=== PATIENT | female | born 1955 | race Caucasian/White ===

== ENCOUNTER 2018-10-23 15:53 | Observation (INO) ==
[2018-10-23] MEDS ORDERED: Aspirin 81 MG TAB.CHEW PO ONE (16:00)
--- NOTE | 2018-10-23 16:06 | Emergency Department Note ---
Disposition Clinical Impression: TIA (transient ischemic attack) Disposition: Admitted As Inpatient Condition: Fair Time of Disposition: 18:39 General Adult HPI - General Chief complaint: ED Headache Stated complaint: Weakness right side Time Seen by Provider: 10/23/18 15:59 - Related Data Home Medications Medication Instructions Recorded Confirmed Aspirin 81 mg PO DAILY 11/23/15 10/23/18 Atorvastatin Calcium [Lipitor] 20 mg PO DAILY 11/23/15 10/23/18 Bupropion HCl [Wellbutrin Xl] 300 mg PO DAILY 11/23/15 10/23/18 Cholecalciferol (D-3) [Vitamin D] 5,000 unit PO DAILY 11/23/15 10/23/18 Ferrous Sulfate 325 mg PO DAILY 11/23/15 10/23/18 Glimepiride [Amaryl] 4 mg PO QAM 11/23/15 10/23/18 Lisinopril [Zestril] 30 mg PO DAILY 11/23/15 10/23/18 Meclizine [Antivert] 25 mg PO AD PRN 11/23/15 10/23/18 hydroCHLOROthiazide 12.5 mg PO DAILY 11/23/15 10/23/18 [Hydrochlorothiazide] metFORMIN [Glucophage] 500 mg PO BID 11/23/15 10/23/18 Omeprazole [PriLOSEC] 20 mg PO DAILY 01/03/17 10/23/18 BuPROPion XL (24 HR) [Wellbutrin 150 mg PO DAILY 10/23/18 10/23/18 XL] Ferrous Sulfate [Iron] 325 mg PO DAILY 10/23/18 10/23/18 Glimepiride [Amaryl] 4 mg PO DAILY 10/23/18 10/23/18 Ondansetron HCl 4 mg SL Q4HR PRN 10/23/18 10/23/18 Promethazine [Phenergan] 25 mg PO Q8HR PRN 10/23/18 10/23/18 Saxagliptin HCl [Onglyza] 5 mg PO DAILY 10/23/18 10/23/18 buPROPion HCl [Zyban] 150 mg PO BID 10/23/18 10/23/18 hydroCHLOROthiazide 12.5 mg PO DAILY 10/23/18 10/23/18 [Hydrochlorothiazide] Allergies Allergy/AdvReac Type Severity Reaction Status Date / Time No Known Allergies Allergy Verified 11/23/15 09:31 Past Medical History - Past Medical History Medical history: Reports: diabetes, GERD Surgical history: Reports: orthopedic, other Psychiatric history: Reports: depression - Social History Smoking Status: Never smoker Smokeless Tobacco Status: No Alcohol use: Reports: none Drug use: Reports: none Course Vital Signs Temperature 98.9 F 10/23/18 16:01 Pulse Rate 72 10/23/18 16:01 Respiratory Rate 16 10/23/18 16:01 Blood Pressure 156/77 10/23/18 16:01 O2 Sat by Pulse Oximetry 99 10/23/18 16:01 Temperature 98.8 F 10/23/18 19:50 Pulse Rate 78 10/23/18 19:50 Respiratory Rate 20 10/23/18 19:50 Blood Pressure 138/78 10/23/18 19:50 O2 Sat by Pulse Oximetry 98 10/23/18 19:50 Oxygen Delivery Oxygen Delivery Room Air Medical Decision Making - Lab Data Result diagrams: 10/23/18 16:17 10/23/18 16:17 Lab Results 10/23/18 10/23/18 10/23/18 Range/Units 16:09 16:17 16:17 WBC 5.8 (4.3-11.1) K/mcL RBC 4.36 (3.82-4.97) M/mcL Hgb 12.9 (11.5-15.4) g/dL Hct 39.2 (35.3-44.9) % MCV 89.9 (83.0-100.0) fL MCH 29.6 (28.0-33.3) pg MCHC 32.9 (31.6-35.5) g/dL RDW 12.3 (11.5-14.5) % Plt Count 195 (140-400) K/mcL MPV 11.7 (9.4-12.4) fL PT 11.1 (9.4-12.1) Seconds INR 1.0 APTT 32.6 (26.0-36.0) Seconds Sodium (136-145) mEq/L Potassium (3.5-5.1) mEq/L Chloride (98-107) mEq/L Carbon Dioxide (23-29) mEq/L BUN (8-23) mg/dL Creatinine (0.60-1.20) mg/dL Est GFR ( Amer) (> 60) Est GFR (Non-Af Amer) (> 60) BUN/Creatinine Ratio (6-26) Glucose (70-105) mg/dL POC Glucose 385 H (70-99) mg/dL Calculated Osmolality (280-300) Calcium (8.6-10.3) mg/dL Troponin I (< 0.04) ng/mL Urine Color (Yellow) Urine Clarity (Clear) Urine pH (5.0-8.0) pH Units Ur Specific [place] (1.010-1.025) Urine Protein (Neg-Trace) mg/dL Urine Glucose (UA) (Normal) mg/dL Urine Ketones (Negative) mg/dL Urine Blood (Negative) Urine Nitrite (Negative) Urine Bilirubin (Negative) Urine Urobilinogen (Normal) mg/dL Ur Leukocyte Esterase (Negative) Ur Culture Indicated? (NO) 10/23/18 10/23/18 Range/Units 16:17 16:30 WBC (4.3-11.1) K/mcL RBC (3.82-4.97) M/mcL Hgb (11.5-15.4) g/dL Hct (35.3-44.9) % MCV (83.0-100.0) fL MCH (28.0-33.3) pg MCHC (31.6-35.5) g/dL RDW (11.5-14.5) % Plt Count (140-400) K/mcL MPV (9.4-12.4) fL PT (9.4-12.1) Seconds INR APTT (26.0-36.0) Seconds Sodium 137 (136-145) mEq/L Potassium 4.0 (3.5-5.1) mEq/L Chloride 105 (98-107) mEq/L Carbon Dioxide 24 (23-29) mEq/L BUN 18 (8-23) mg/dL Creatinine 0.75 (0.60-1.20) mg/dL Est GFR ( Amer) > 60 (> 60) Est GFR (Non-Af Amer) > 60 (> 60) BUN/Creatinine Ratio 24 (6-26) Glucose 381 H (70-105) mg/dL POC Glucose (70-99) mg/dL Calculated Osmolality 302 H (280-300) Calcium 9.2 (8.6-10.3) mg/dL Troponin I < 0.03 (< 0.04) ng/mL Urine Color Yellow (Yellow) Urine Clarity Clear (Clear) Urine pH 6.0 (5.0-8.0) pH Units Ur Specific [place] > 1.030 H (1.010-1.025) Urine Protein Negative (Neg-Trace) mg/dL Urine Glucose (UA) >=1000 H (Normal) mg/dL Urine Ketones Negative (Negative) mg/dL Urine Blood Negative (Negative) Urine Nitrite Negative (Negative) Urine Bilirubin Negative (Negative) Urine Urobilinogen Normal (Normal) mg/dL Ur Leukocyte Esterase Negative (Negative) Ur Culture Indicated? NO (NO) Attestation Statement - Attestation Attestation: I examined this patient and my medical decision-making was reviewed with the Resident Physician. I agree with the documented findings, disposition and treatment plan as described except to the extent set forth below. Patient presents to the ED with a chief but a right-sided weakness. Patient states she was talking to her and was unable to find her words. He said the right side of her mouth drooped down. She had weakness of the right arm and leg. They called 911. Her symptoms resolved in route. On exam she is awake alert and appropriate. Clear speech. Oriented. Moves all extremities. NIH of 0. Plan. Patient appears to have had a TIA. Her symptoms are resolved with an NIH of 0. No stroke alert was called. Workup and likely admission. EKG reviewed with the resident. Normal sinus. No ischemic changes. Patient reassessed with no change. Will be admitted for further TIA workup. Head CT 10/23/18 16:02 IMPRESSION: No evidence of acute intracranial abnormality. D/ / 10/23/2018 17:04:41 Elie Lombardi MD / marco antonio Interpreting Provider: Elie Lombardi MD
--- NOTE | 2018-10-23 16:07 | Emergency Department Note ---
Disposition Clinical Impression: TIA (transient ischemic attack) Disposition: Admitted As Inpatient Condition: Fair Time of Disposition: 18:30 General Adult HPI - General Chief complaint: ED Headache Stated complaint: Weakness right side Time Seen by Provider: 10/23/18 15:59 Source: patient, EMS Mode of arrival: EMS Limitations: no limitations Nursing Notes Reviewed: Yes Vital Signs Reviewed: Yes - History of Present Illness HPI Narrative: 63-year-old female with 30m of right sided weakness and dysphagia that started at 1445 and lasted for about 30m. she reports that she was talking to her and could not think of the word faucet and then could not speak. Patient also reports that she had right-sided weakness and leaned to the right. reports that the right side of her face was drooping. Patient reports no history of strokes in the past. Patient also reports that she had a headache earlier today and laid down to take a nap at approximately noon today. Initial NIH is 0. - Related Data Home Medications Medication Instructions Recorded Confirmed Aspirin 81 mg PO DAILY 11/23/15 10/23/18 Atorvastatin Calcium [Lipitor] 20 mg PO DAILY 11/23/15 10/23/18 Bupropion HCl [Wellbutrin Xl] 300 mg PO DAILY 11/23/15 10/23/18 Cholecalciferol (D-3) [Vitamin D] 5,000 unit PO DAILY 11/23/15 10/23/18 Ferrous Sulfate 325 mg PO DAILY 11/23/15 10/23/18 Glimepiride [Amaryl] 4 mg PO QAM 11/23/15 10/23/18 Lisinopril [Zestril] 30 mg PO DAILY 11/23/15 10/23/18 Meclizine [Antivert] 25 mg PO AD PRN 11/23/15 10/23/18 hydroCHLOROthiazide 12.5 mg PO DAILY 11/23/15 10/23/18 [Hydrochlorothiazide] metFORMIN [Glucophage] 500 mg PO BID 11/23/15 10/23/18 Omeprazole [PriLOSEC] 20 mg PO DAILY 01/03/17 10/23/18 BuPROPion XL (24 HR) [Wellbutrin 150 mg PO DAILY 10/23/18 10/23/18 XL] Ferrous Sulfate [Iron] 325 mg PO DAILY 10/23/18 10/23/18 Glimepiride [Amaryl] 4 mg PO DAILY 10/23/18 10/23/18 Ondansetron HCl 4 mg SL Q4HR PRN 10/23/18 10/23/18 Promethazine [Phenergan] 25 mg PO Q8HR PRN 10/23/18 10/23/18 Saxagliptin HCl [Onglyza] 5 mg PO DAILY 10/23/18 10/23/18 buPROPion HCl [Zyban] 150 mg PO BID 10/23/18 10/23/18 hydroCHLOROthiazide 12.5 mg PO DAILY 10/23/18 10/23/18 [Hydrochlorothiazide] Allergies Allergy/AdvReac Type Severity Reaction Status Date / Time No Known Allergies Allergy Verified 11/23/15 09:31 Review of Systems: In addition to that documented in the HPI above, the additional ROS was obtained: Constitutional: Denies fevers or chills Eyes: Denies vision changes ENMT: Denies sore throat CV: Denies chest pain Resp: Denies SOB GI: Denies vomiting or diarrhea : Denies painful urination MSK: Denies recent trauma Skin: Denies new rashes Neuro: Denies new numbness or tingling or weakness Endocrine: Denies unexpected weight loss Heme: Denies bleeding disorders Past Medical History - Past Medical History Medical history: Reports: diabetes, GERD Surgical history: Reports: orthopedic, other Psychiatric history: Reports: depression - Social History Smoking Status: Never smoker Smokeless Tobacco Status: No Alcohol use: Reports: none Drug use: Reports: none Physical Exam General: A&O x 3. No acute distress. Well developed, well nourished. Head: atraumatic, normocephalic. ENT: No conjunctival injection, no scleral icterus. PERRLA. EOMI. Oropharynx n on- erythematous. mucous membranes moist. Neuro: No focal deficits, no speech deficit, no facial droop, mentating well. BUE/BLE Str 5/5. Yobani UE/LE sensation intact. CN II-XII intact. Cerebellar test ing with [id number] and [id number]-[id number] intact. Pulm: Lungs CTAB A/P. No wheezes, rales, ronchi. Cardio: RRR no m/r/g. Chest not tender to palpation. Abd: Soft, non-distended. Normoactive bowel sounds. Non-tender to palpation. No guarding. Non rigid. Extremities: Radial pulses 2+ yobani, dorsalis pedis/posterior tibialis 2+ yobani. No LE edema. No cyanosis, clubbing. Skin: warm, dry, intact. No rashes. Psych: Appropriate mood and affect. Answers questions appropriately. Cooperative with exam. Course Vital Signs Temperature 98.9 F 10/23/18 16:01 Pulse Rate 72 10/23/18 16:01 Respiratory Rate 16 10/23/18 16:01 Blood Pressure 156/77 10/23/18 16:01 O2 Sat by Pulse Oximetry 99 10/23/18 16:01 Temperature 98.9 F 10/23/18 16:01 Pulse Rate 68 10/23/18 18:59 Respiratory Rate 16 10/23/18 18:59 Blood Pressure 174/52 10/23/18 18:59 O2 Sat by Pulse Oximetry 98 10/23/18 18:59 Oxygen Delivery Oxygen Delivery Room Air Medical Decision Making - [facility] Narrative Medical decision making narrative: 63-year-old female with sudden onset right-sided weakness that lasted for approximately 30 minutes. Will do a neurologic workup. Suspect admit. 1800: Patient's initial head CT was negative for any acute intracranial findings. Her lab work was unremarkable except for an elevated glucose. However given the fact the patient's symptoms are consistent with a TIA she is at increased risk of having a CVA within the next 24-48 hours. Patient could benefit from an inpatient workup including MRI and neurologic consult. Patient was admitted to the hospitalist Dr. Sanches who agreed to send the patient to his service. Results of the workup including any imaging and/or labwork was shared with the patient at bedside. Patient was given an opportunity to ask questions at bedside and all of their concerns were addressed. Patient verbalized understanding and agreement with plan of care. Pt remained stable while in the department. - Medical Records Medical records reviewed: Yes I reviewed the patient's medical records. - Lab Data Lab results reviewed: Yes I reviewed the patient's lab results. Result diagrams: 10/23/18 16:17 10/23/18 16:17 Lab Results 10/23/18 10/23/18 10/23/18 Range/Units 16:09 16:17 16:17 WBC 5.8 (4.3-11.1) K/mcL RBC 4.36 (3.82-4.97) M/mcL Hgb 12.9 (11.5-15.4) g/dL Hct 39.2 (35.3-44.9) % MCV 89.9 (83.0-100.0) fL MCH 29.6 (28.0-33.3) pg MCHC 32.9 (31.6-35.5) g/dL RDW 12.3 (11.5-14.5) % Plt Count 195 (140-400) K/mcL MPV 11.7 (9.4-12.4) fL PT 11.1 (9.4-12.1) Seconds INR 1.0 APTT 32.6 (26.0-36.0) Seconds Sodium (136-145) mEq/L Potassium (3.5-5.1) mEq/L Chloride (98-107) mEq/L Carbon Dioxide (23-29) mEq/L BUN (8-23) mg/dL Creatinine (0.60-1.20) mg/dL Est GFR ( Amer) (> 60) Est GFR (Non-Af Amer) (> 60) BUN/Creatinine Ratio (6-26) Glucose (70-105) mg/dL POC Glucose 385 H (70-99) mg/dL Calculated Osmolality (280-300) Calcium (8.6-10.3) mg/dL Troponin I (< 0.04) ng/mL Urine Color (Yellow) Urine Clarity (Clear) Urine pH (5.0-8.0) pH Units Ur Specific [place] (1.010-1.025) Urine Protein (Neg-Trace) mg/dL Urine Glucose (UA) (Normal) mg/dL Urine Ketones (Negative) mg/dL Urine Blood (Negative) Urine Nitrite (Negative) Urine Bilirubin (Negative) Urine Urobilinogen (Normal) mg/dL Ur Leukocyte Esterase (Negative) Ur Culture Indicated? (NO) 10/23/18 10/23/18 Range/Units 16:17 16:30 WBC (4.3-11.1) K/mcL RBC (3.82-4.97) M/mcL Hgb (11.5-15.4) g/dL Hct (35.3-44.9) % MCV (83.0-100.0) fL MCH (28.0-33.3) pg MCHC (31.6-35.5) g/dL RDW (11.5-14.5) % Plt Count (140-400) K/mcL MPV (9.4-12.4) fL PT (9.4-12.1) Seconds INR APTT (26.0-36.0) Seconds Sodium 137 (136-145) mEq/L Potassium 4.0 (3.5-5.1) mEq/L Chloride 105 (98-107) mEq/L Carbon Dioxide 24 (23-29) mEq/L BUN 18 (8-23) mg/dL Creatinine 0.75 (0.60-1.20) mg/dL Est GFR ( Amer) > 60 (> 60) Est GFR (Non-Af Amer) > 60 (> 60) BUN/Creatinine Ratio 24 (6-26) Glucose 381 H (70-105) mg/dL POC Glucose (70-99) mg/dL Calculated Osmolality 302 H (280-300) Calcium 9.2 (8.6-10.3) mg/dL Troponin I < 0.03 (< 0.04) ng/mL Urine Color Yellow (Yellow) Urine Clarity Clear (Clear) Urine pH 6.0 (5.0-8.0) pH Units Ur Specific [place] > 1.030 H (1.010-1.025) Urine Protein Negative (Neg-Trace) mg/dL Urine Glucose (UA) >=1000 H (Normal) mg/dL Urine Ketones Negative (Negative) mg/dL Urine Blood Negative (Negative) Urine Nitrite Negative (Negative) Urine Bilirubin Negative (Negative) Urine Urobilinogen Normal (Normal) mg/dL Ur Leukocyte Esterase Negative (Negative) Ur Culture Indicated? NO (NO) - Radiology Data Radiology results reviewed: Yes I reviewed the patient's radiology results. Head CT 10/23/18 16:02 IMPRESSION: No evidence of acute intracranial abnormality. D/ / 10/23/2018 17:04:41 Elie Lombardi MD / marco antonio Interpreting Provider: Elie Lombardi MD - EKG Data EKG #1 EKG attestation: Yes I reviewed and interpreted this EKG. EKG results narrative: eart rate 76, rhythm sinus, axis nor intervals within normal limits. No ST segment elevation or depression. When compared with previous EKG dated 04/21/2012 there are no significant changes.
[2018-10-23 16:45] LABS: Hematocrit 39.2 % (35.3-44.9); Hemoglobin 12.9 g/dL (11.5-15.4); Mean Corpuscular HGB Conc 32.9 g/dL (31.6-35.5); Mean Corpuscular Hemoglobin 29.6 pg (28.0-33.3); Mean Corpuscular Volume 89.9 fL (83.0-100.0); Mean Platelet Volume 11.7 fL (9.4-12.4); Platelet Count 195 K/mcL (140-400); Red Blood Count 4.36 M/mcL (3.82-4.97); Red Cell Distribution Width 12.3 % (11.5-14.5); White Blood Count 5.8 K/mcL (4.3-11.1)
[2018-10-23 16:56] LABS: Prothrombin Time 11.1 Seconds (9.4-12.1)
[2018-10-23 16:59] LABS: Activated Partial Thrombo Time 32.6 Seconds (26.0-36.0)
[2018-10-23 17:09] LABS: Bilirubin,Urine Negative (Negative); Blood,Urine Negative (Negative); Clarity,Urine Clear (Clear); Color,Urine Yellow (Yellow); Glucose,Urine (UA) >=1000 mg/dL (Normal); Ketones,Urine Negative (Negative); Leukocyte Esterase,Urine Negative (Negative); Nitrite,Urine Negative (Negative); Protein,Urine Negative (Neg-Trace); Specific Gravity,Urine > 1.030 (1.010-1.025); Urobilinogen,Urine Normal (Normal)
[2018-10-23 17:14] LABS: BUN/Creatinine Ratio 24 (6-26); Blood Urea Nitrogen 18 mg/dL (8-23); Calcium 9.2 mg/dL (8.6-10.3); Carbon Dioxide 24 mEq/L (23-29); Chloride 105 mEq/L (98-107); Glucose 381 mg/dL (70-105); Osmolality,Calculated 302 (280-300); Sodium 137 mEq/L (136-145); Troponin I < 0.03 ng/mL (< 0.04); eGFR For African Americans > 60 (> 60); eGFR For Non-African Americans > 60 (> 60)
[2018-10-23] MEDS ORDERED: Prochlorperazine 10 MG/2 ML VIAL IVP STA (18:49)
[2018-10-23] MEDS ORDERED: Ketorolac 15 MG/ML VIAL IVP ONE (18:49)
[2018-10-23] MEDS ORDERED: *HR* Dextrose 50 % in Water (Syg) 50 ML SYRINGE IVP PRN (19:50)
[2018-10-23] MEDS ORDERED: Dextrose Gel 15 GM/37.5 ML TUBE PO PRN ×2 (19:50)
[2018-10-23] MEDS ORDERED: Gadolinium Contrast Agent (WT Based) IV PRN (19:58)
[2018-10-23] MEDS ORDERED: Ringers Solution, Lactated 1,000 ML IVC SCH (20:30)
[2018-10-23] MEDS ORDERED: Insulin LISPRO 300 UNITS/3 ML VIAL SQ SCH (21:00)
[2018-10-23] MEDS ORDERED: BUPROPION HCL 150 MG PO SCH (21:00)
--- NOTE | 2018-10-23 21:25 | Internal Med History&Physical ---
Date of Encounter: 10/23/18 Time of Encounter: 21:24 Internal Medicine - H&P: HPI Chief complaint: speech difficulty Admitted From: Home Plans for Post Hospital Care: Home History of present illness: Emily Lorenzana is a 63 year old woman with a medical history remarkable for IBS, hypothyroidism, iron deficiency anemia and diabetes presented to the emergency room with the chief complaint of right-sided weakness and difficulty with her speech. She states that around 3 PM this afternoon she developed difficulty speaking while she was having was conversing with her and could not articulate her words. She says prior to this she was on the computer and after she clicked her mouse, she had difficulty discerning what she was seeing and doing, subsequently becoming confused. She then proceeded to stand up and developed right-sided weakness, leaned towards that side as she could not move her right leg. Her noting facial drooping and she reported some tingling in her face. She states it lasted about 30 minutes and reports that this has never happened to her in the past. She had a mild headache preceding the symptoms. At the time of arrival to the ER the symptoms had resolved and he r NIH was 0. Head CT done was unremarkable and her lab work was grossly within normal limits except an elevated glucose at 380. She denies chest pain, dyspnea and dizziness. Vitals: Reviewed General: Obese white woman lying in bed in no acute distress. Skin: Warm and supple. HEENT: Moist mucous membranes. No conjunctivae pallor. Neck: No lymphadenopathy. No JVD. No carotid bruits. No palpable thyroid. Chest: Normal thoracic expansion. Normal breath sounds. Clear to auscultation. Heart: Normal S1 & S2; rhythmic. Grade IV/ systolic murmur in bilateral upper sternal borders. Abdomen: Non-distended, soft and non-tender to palpation. No peritoneal reaction. Extremities: No clubbing, cyanosis or edema. No calf tenderness. Normal distal pulses. Neurological: Awake, alert and oriented to person, place and time. No focal deficits present. Strength and sensation intact. Psych: Affect appropriate. Assessment/Plan 1. TIA: Although since resolved, the patient has an ABCD2 score of 6 which is high risk for occurrence of a stroke in the days following this event. She is advised on risk factor modification as evidenced by the need to improve her blood pressure control and glycemic values. She will also benefit from weight loss. In the interim, will monitor her on telemetry, obtain an echo given the murmur auscultated and MRI of her brain parenchyma and vasculature. She says she was previously on aspirin about 4 years ago but it was disontinued by her PCP. Will give loading dose and continue with low dose aspirin. 2. Diabetes: Poorly controlled. Will check A1C and will need readjustment of her medications as an outpatient and counseling on adherence. 3. Hypertension: Poorly controlled. Will continue to monitor and may also require medication adjustments. 4. Obesity: Counseled and educated on therapeutic lifestyle changes for weight loss as it will be of benefit in controlling comorbidities. Client Representative evaluation advised. Past Med Surg Social Fam HX - Past Medical History Medical history: diabetes, GERD, hyperlipidemia, hypertension Additional medical history: hyperthyroidism, vertigo, IBS Psychiatric history: depression - Past Surgical History Surgical History: orthopedic, other Additional surgical history: tubal liagation, liver bx benign,wisdom teeth removed, right carpal tunnel, bone spur left knee - Social History Smoking Status: Never smoker Smokeless Tobacco Status: No Alcohol use: none Drug use: none - Family History Father Adopted: [place]: TESSY Family Member Ethnicity: Non- Living Status: Age at : 70 Cause of : HEART PROBLEMS Hx Family Cardiac Disorders: Yes Hx Family Respiratory Disorders: No Hx Family Cancer: No Hx Family GI Disorders: No Hx Family Genitourinary Disorders: No Hx Family Endocrine Disorder: No Hx Family Musculoskeletal Disorders: No Hx Family Neuromuscular Disorders: No Hx Family Neurologic Disorders: No Hx Family HEENT Disorders: No Hx Family Autoimmune Disorders: No Hx Family Reproductive Disorders: No Hx Family Psychosocial Disorders: No Hx Family Medical Disorders: No Internal Medicine - H&P: Meds Aspirin 81 mg PO DAILY 11/23/15 [History] Atorvastatin Calcium [Lipitor] 20 mg PO DAILY 11/23/15 [History] Bupropion HCl [Wellbutrin Xl] 300 mg PO DAILY 11/23/15 [History] Cholecalciferol (D-3) [Vitamin D] 5,000 unit PO DAILY 11/23/15 [History] Ferrous Sulfate 325 mg PO DAILY 11/23/15 [History] Glimepiride [Amaryl] 4 mg PO QAM 11/23/15 [History] Lisinopril [Zestril] 30 mg PO DAILY 11/23/15 [History] Meclizine [Antivert] 25 mg PO AD PRN 11/23/15 [History] hydroCHLOROthiazide [Hydrochlorothiazide] 12.5 mg PO DAILY 11/23/15 [History] metFORMIN [Glucophage] 500 mg PO BID 11/23/15 [History] Omeprazole [PriLOSEC] 20 mg PO DAILY 01/03/17 [History] BuPROPion XL (24 HR) [Wellbutrin XL] 150 mg PO DAILY 10/23/18 [History] Ferrous Sulfate [Iron] 325 mg PO DAILY 10/23/18 [History] Glimepiride [Amaryl] 4 mg PO DAILY 10/23/18 [History] Ondansetron HCl 4 mg SL Q4HR PRN 10/23/18 [History] Promethazine [Phenergan] 25 mg PO Q8HR PRN 10/23/18 [History] Saxagliptin HCl [Onglyza] 5 mg PO DAILY 10/23/18 [History] buPROPion HCl [Zyban] 150 mg PO BID 10/23/18 [History] hydroCHLOROthiazide [Hydrochlorothiazide] 12.5 mg PO DAILY 10/23/18 [History] Allergy/AdvReac Type Severity Reaction Status Date / Time No Known Allergies Allergy Verified 11/23/15 09:31 All Systems PM: A 10-system review of systems was performed and is negative for pertinent findings except as documented above in the HPI. Family history reviewed and found non-contributory. - Constitutional Vitals: Temp Pulse Resp BP Pulse Ox 98.8 F 78 20 138/78 98 10/23/18 19:50 10/23/18 19:50 10/23/18 19:50 10/23/18 19:50 10/23/18 19:50 Exam: . Internal Med - H&P Results - Labs CBC & Chem 7: 10/23/18 16:17 10/23/18 16:17 Labs: Short CBC 10/23/18 Range/Units 16:17 WBC 5.8 (4.3-11.1) K/mcL Hgb 12.9 (11.5-15.4) g/dL Hct 39.2 (35.3-44.9) % Plt Count 195 (140-400) K/mcL BMP 10/23/18 16:17 Sodium 137 Potassium 4.0 Chloride 105 Carbon Dioxide 24 BUN 18 Creatinine 0.75 Glucose 381 H Calcium 9.2 Cardiac Enzymes 10/23/18 Range/Units 16:17 Troponin I < 0.03 (< 0.04) ng/mL Urine 10/23/18 Range/Units 16:30 Urine Color Yellow (Yellow) Urine Clarity Clear (Clear) Urine pH 6.0 (5.0-8.0) pH Units Ur Specific [place] > 1.030 H (1.010-1.025) Urine Protein Negative (Neg-Trace) mg/dL Urine Glucose (UA) >=1000 H (Normal) mg/dL - Impressions ITS Impressions Head CT 10/23/18 16:02 IMPRESSION: No evidence of acute intracranial abnormality. D/ / 10/23/2018 17:04:41 Elie Lombardi MD / marco antonio Interpreting Provider: Elie Lombardi MD - Time Spent With Patient Total time spent is greater than 50% in coordination of care (as documented) at patient's floor/unit and/or counseling patient:
[2018-10-23] MEDS ORDERED: Ondansetron ODT 4 MG TAB.RAPDIS SL PRN (22:37)
--- NOTE | 2018-10-23 23:06 | Event Note ---
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 We will place neurology consult and physical therapy evaluation. Findings discussed with patient.
[2018-10-23] MEDS ORDERED: Melatonin 3 MG TABLET PO SCH (23:30)
[2018-10-24 01:56] LABS: Thyroid Stimulating Hormone 2.534 mcIU/mL (0.340-5.600)
[2018-10-24 04:11] LABS: Estimated Average Glucose 255 mg/dl
[2018-10-24] MEDS ORDERED: Insulin LISPRO 300 UNITS/3 ML VIAL SQ SCH ×3 (07:30→09:02)
[2018-10-24] MEDS ORDERED: *HR* LORazepam 0.5 MG TABLET PO ONE (08:02)
--- NOTE | 2018-10-24 08:15 | Internal Med Progress Note ---
Hospitalist Progress Note - Encounter Date of Encounter: 10/24/18 Time of Encounter: 08:12 - Subjective Interval History: Patient was seen and examined at bedside. Currently patient is awake alert and oriented following simple commands. Patient states she feels as if she is back to baseline and is asking when she can go home. Discussed treatment plan with the patient which includes MRI evaluation of neurology as well as PT evaluation. Patient verbalizes understanding of treatment plan - Exam Vitals: Temp Pulse Resp BP Pulse Ox 98.2 F 66 16 173/83 95 10/24/18 08:00 10/24/18 08:00 10/24/18 08:00 10/24/18 08:00 10/24/18 08:00 Exam: Skin: Free of rash and discoloration. Eyes: Sclera is white. There is no discharge from eyes. ENMT: Oral/pharyngeal mucosa is normal in appearance. There is no discharge from nose or ears. Respiratory: Normal breath sounds with no crackles and wheezes bilaterally. CV: Heart is regular with no gallop or murmur. GI: Abdomen is flat and soft with no palpable mass or visceromegaly. : There is no tenderness in patient's flanks bilaterally. Neuro exam: He has good strength in upper and lower extremities. He has normal eye movements. Psychiatric: He has normal affect. His thought process is appropriate to the situation. - Assessment and Plan (1) CVA (cerebral vascular accident) Current Visit: Yes Status: Acute Assessment and Plan: 1 patient presented after experiencing sudden onset of right-sided weakness and difficulty with each as well as right-sided facial drooping. CT of head shows no acute intracranial abnormality however MRI of brain and head without contrast does reveal a small area of acute infarct within the right periventricular white matter. With no evidence of acute intracranial hemorrhage. She also has severe stenosis at the junction of the left P1 and P2 segments of the left posterior cerebral artery no infarct is identified in this distribution. Currently patient has returned to her baseline there are no focal deficits noted-no facial drooping Neurology has been consulted PT OT has been consulted We will continue with aspirin and statin MRA of neck is pending at this time We will allow for permissive hypertension Maintain adequate glucose control it appears patient has uncontrolled diabetes (2) HTN (hypertension) Current Visit: Yes Status: Acute Assessment and Plan: We will allow for permissive hypertension at this time (3) Diabetes Current Visit: Yes Status: Acute Assessment and Plan: Appears to have uncontrolled diabetes hemoglobin A1c is 10.5 we will hold oral agents for now place on sliding insulin scale [id number] before meals at bedtime She will need education concerning the importance of glucose control - Time Spent with Patient Total time spent is greater than 50% in coordination of care (as documented) at patient's floor/unit and/or counseling patient: Internal Medicine: Result - Labs CBC & Chem 7: 10/23/18 16:17 10/23/18 16:17 Labs: Short CBC 10/23/18 Range/Units 16:17 WBC 5.8 (4.3-11.1) K/mcL Hgb 12.9 (11.5-15.4) g/dL Hct 39.2 (35.3-44.9) % Plt Count 195 (140-400) K/mcL BMP 10/23/18 16:17 Sodium 137 Potassium 4.0 Chloride 105 Carbon Dioxide 24 BUN 18 Creatinine 0.75 Glucose 381 H Calcium 9.2 Cardiac Enzymes 10/23/18 Range/Units 16:17 Troponin I < 0.03 (< 0.04) ng/mL Urine 10/23/18 Range/Units 16:30 Urine Color Yellow (Yellow) Urine Clarity Clear (Clear) Urine pH 6.0 (5.0-8.0) pH Units Ur Specific [place] > 1.030 H (1.010-1.025) Urine Protein Negative (Neg-Trace) mg/dL Urine Glucose (UA) >=1000 H (Normal) mg/dL - ABG Interpretation ABG results: PT/INR, D-dimer PT 11.1 Seconds (9.4-12.1) 10/23/18 16:17 - Impressions Impressions Head CT 10/23/18 16:02 IMPRESSION: No evidence of acute intracranial abnormality. D/ / 10/23/2018 17:04:41 Elie Lombardi MD / marco antonio Interpreting Provider: Elie Lombardi MD Brain MRI 10/23/18 19:58 IMPRESSION: Small area of acute infarct within right periventricular white matter. No evidence of acute intracranial hemorrhage. Small amount of chronic small vessel ischemic white matter disease. Mild diffuse cerebral volume loss. 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 No infarct is identified in this distribution. No additional evidence of high-grade stenosis or focal occlusion involving the intracranial vasculature. The findings were sent to the Radiology Results Communication Center at 9:56 pm on 10/23/2018to be communicated to a licensed caregiver. D/ / 10/23/2018 22:01:23 Julio Horner MD / marco antonio Interpreting Provider: Julio Horner MD Head MRA 10/23/18 19:58 IMPRESSION: Small area of acute infarct within right periventricular white matter. No evidence of acute intracranial hemorrhage. Small amount of chronic small vessel ischemic white matter disease. Mild diffuse cerebral volume loss. 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 No infarct is identified in this distribution. No additional evidence of high-grade stenosis or focal occlusion involving the intracranial vasculature. The findings were sent to the Radiology Results Communication Center at 9:56 pm on 10/23/2018to be communicated to a licensed caregiver. D/ / 10/23/2018 22:01:23 Julio Horner MD / marco antonio Interpreting Provider: Julio Horner MD Echocardiogram 10/23/18 19:59 Impressions: LVEF 60-65%. Normal LV chamber size and function. Mild concentric left ventricular hypertrophy. Mild left ventricular diastolic dysfunction. Normal right ventricular structure and function. Suboptimal image quality, but no obvious evidence of PFO with agitated saline contrast. Mildly calcified aortic valve leaflets. No aortic stenosis detected by Doppler. Visually, there is mild aortic stenosis. No evidence of pulmonary hypertension. Left Ventricular Wall Motion: Rest Echo Findings All wall segments showed normal motion. Findings: Study Quality * Technically sub-optimal due to poor echocardiographic windows. ECG Findings * Normal sinus rhythm. Left Ventricle * LVEF 60-65%. * Normal LV chamber size and function. * Mild concentric left ventricular hypertrophy. * Mild left ventricular diastolic dysfunction. Right Ventricle * Normal right ventricular structure and function. Left Atrium * Mildly dilated left atrium. Right Atrium * Normal right atrial size. Interatrial Septum * Suboptimal image quality, but no obvious evidence of PFO with agitated saline contrast. Aortic Valve * Trileaflet aortic valve. * Mildly calcified aortic valve leaflets. * No aortic regurgitation. * No aortic stenosis detected by Doppler. Visually, there is mild aortic stenosis. Mitral Valve * Mild mitral annular calcification * Trace mitral regurgitation. * No mitral stenosis. Tricuspid Valve * Normal tricuspid valve structure and function. * Trace tricuspid regurgitation. * No evidence of pulmonary hypertension. Pulmonic Valve * Normal pulmonic valve structure and function. * No pulmonic regurgitation. Aorta * Normally sized aortic root. Pericardium * The pericardium appears normal. IVC * Normal IVC dimensions and inspiratory collapse. Pulmonary Artery * Normal visualized portions of the main pulmonary artery. - VTE Documentation of Mechanical Device: Graduated compression elastic hosiery Consult Discharge Plan - Plan Referrals: Louisa Caldera CNP [Primary Care Provider] - (2) HTN (hypertension) Qualifiers: Hypertension type: essential hypertension Qualified Code(s): I10 - Essential (primary) hypertension (3) Diabetes Qualifiers: Diabetes mellitus type: type 2 Diabetes mellitus fci insulin use: without fci use Diabetes mellitus complication status: without complication Qualified Code(s): E11.9 - Type 2 diabetes mellitus without complications
[2018-10-24] MEDS ORDERED: BuPROPion XL (24 HR) 150 MG TABLET PO SCH (09:00)
[2018-10-24] MEDS ORDERED: Cholecalciferol (D-3) 1,000 UNIT (25MCG) TABLET PO SCH (09:00)
[2018-10-24] MEDS ORDERED: Lisinopril 20 MG TABLET PO SCH ×2 (09:00→13:45)
[2018-10-24] MEDS ORDERED: NON-FORMULARY MEDICATION 1 EACH EACH (Bupropion Hcl [Wellbutrin Xl] 300 MG) PO SCH (09:00)
[2018-10-24] MEDS ORDERED: hydroCHLOROthiazide 25 MG TABLET PO SCH ×2 (09:00→13:46)
[2018-10-24] MEDS ORDERED: Aspirin 81 MG TAB.CHEW PO SCH (09:00)
--- NOTE | 2018-10-24 09:53 | Neurology - Consult Note ---
Date of Encounter: 10/24/18 Time of Encounter: 09:47 Assessment and Plan (1) CVA (cerebral vascular accident) Current Visit: Yes Status: Acute This is a 63-year-old woman with past medical history significant for upper tension, diabetes who developed acute onset of confusion, speech difficulty as well as right leg weakness lasting 15-20 minutes with a rapid resolution. MRI of the brain confirmed diagnosis of lacunar infarct involving the right periv entricular white matter, which is most consistent with small vessel etiology. Agree with antiplatlet therapy in the form of Aspirin 81mg daily and statin therapy. Echocardiogram reports are available and reviewed and currently no indication for anticoagulation therapy. Patient has no known history of atrial fibrillation Patient is MRA of the brain demonstrated severe stenosis involving the left P1 segment however, no cerebral infarct noted in the area supplied by this artery. No indication for any type of angioplastic procedures for this type of finding. Treatment is a largely medical including antiplatelet therapy and statin therapy. Patient's neurological condition returned back to normal and it is anticipated that patient will be returning home after stroke workup is completed. Qualifiers: CVA mechanism: unspecified Qualified Code(s): I63.9 - Cerebral infarction, unspecified History of Present Illness Chief complaint: confusion and right leg weakness and abnormal MRI HPI: Ms. Lorenzana is a 63 year old female with past medical history significant for hy pertension diabetes, hyperlipidemia, depression, hypothyroidism, migraine headaches, GERD, who developed acute onset of confusion, speech difficulty and right leg weakness yesterday afternoon at about 3 PM. Symptoms recurred rather acutely while she was using computer. She suddenly become confused and had difficulty comprehending what she was doing and also felt that her right leg was weak and she was found to have speech difficulty. Symptoms lasted about 15-20 minutes and rapidly improved. In the emergency room, her CT of the head was reported no acute intracranial abnormality. Subsequently, patient completed MRI of the brain which demonstrated presence of small area of acute infarct within right periventricular white matter. There is no evidence of acute intracranial hemorrhage. MRA of the head demonstrated severe stenosis at the junction of the left P1 segment of the left posterior cerebral artery. However, no cerebral infarct is identified in this distribution. No additional evidence of high grade stenosis or focal occlusion involving the intracranial vasculature. Patient was taking aspirin for unspecified reason in the past and it was discontinued. This was restarted again at this time. Past Med Surg Social Fam HX - Past Medical History Medical history: diabetes, GERD, hyperlipidemia, hypertension Additional medical history: hyperthyroidism, vertigo, IBS Psychiatric history: depression - Past Surgical History Surgical History: orthopedic, other Additional surgical history: tubal liagation, liver bx benign,wisdom teeth removed, right carpal tunnel, bone spur left knee - Social History Smoking Status: Never smoker Smokeless Tobacco Status: No Alcohol use: none Drug use: none - Family History Father Adopted: [place]: TESS[place] Family Member Ethnicity: Non- Living Status: Age at : 70 Cause of : HEART PROBLEMS Hx Family Cardiac Disorders: Yes Hx Family Respiratory Disorders: No Hx Family Cancer: No Hx Family GI Disorders: No Hx Family Genitourinary Disorders: No Hx Family Endocrine Disorder: No Hx Family Musculoskeletal Disorders: No Hx Family Neuromuscular Disorders: No Hx Family Neurologic Disorders: No Hx Family HEENT Disorders: No Hx Family Autoimmune Disorders: No Hx Family Reproductive Disorders: No Hx Family Psychosocial Disorders: No Hx Family Medical Disorders: No Medications and Allergies Aspirin 81 mg PO DAILY 11/23/15 [History] Atorvastatin Calcium [Lipitor] 20 mg PO DAILY 11/23/15 [History] Bupropion HCl [Wellbutrin Xl] 300 mg PO DAILY 11/23/15 [History] Cholecalciferol (D-3) [Vitamin D] 5,000 unit PO DAILY 11/23/15 [History] Ferrous Sulfate 325 mg PO DAILY 11/23/15 [History] Glimepiride [Amaryl] 4 mg PO QAM 11/23/15 [History] Lisinopril [Zestril] 30 mg PO DAILY 11/23/15 [History] Meclizine [Antivert] 25 mg PO AD PRN 11/23/15 [History] hydroCHLOROthiazide [Hydrochlorothiazide] 12.5 mg PO DAILY 11/23/15 [History] metFORMIN [Glucophage] 500 mg PO BID 11/23/15 [History] Omeprazole [PriLOSEC] 20 mg PO DAILY 01/03/17 [History] BuPROPion XL (24 HR) [Wellbutrin XL] 150 mg PO DAILY 10/23/18 [History] Ferrous Sulfate [Iron] 325 mg PO DAILY 10/23/18 [History] Glimepiride [Amaryl] 4 mg PO DAILY 10/23/18 [History] Melatonin 6 mg PO HS 10/23/18 [History] Ondansetron HCl 4 mg SL Q4HR PRN 10/23/18 [History] Promethazine [Phenergan] 25 mg PO Q8HR PRN 10/23/18 [History] Saxagliptin HCl [Onglyza] 5 mg PO DAILY 10/23/18 [History] buPROPion HCl [Zyban] 150 mg PO BID 10/23/18 [History] hydroCHLOROthiazide [Hydrochlorothiazide] 12.5 mg PO DAILY 10/23/18 [History] Allergy/AdvReac Type Severity Reaction Status Date / Time No Known Allergies Allergy Verified 11/23/15 09:31 All Systems: The remainder of the systems were reviewed and are negative - Constitutional Constitutional ROS IM: as per HPI - Nose, Mouth, Throat Nose, mouth and throat: abnormal hearing (no) - Cardiovascular Cardiovascular ROS IM: chest pain (no), claudication (no), diaphoresis (no) - Respiratory Respiratory IM: cough (no), dyspnea (no), hemoptysis (no), dyspnea on exertion (no) - Gastrointestinal Gastrointestinal: abdominal pain (no), belching (no), bloating (no) - Musculoskeletal Musculoskeletal ROS IM: abnormal gait (no), arthralgias (no), atrophy (no), back pain (no) - Neurological Neurological ROS: abnormal gait (no), abnormal hearing, abnormal movements (no), abnormal speech (yes), behavioral changes (no), burning sensations (no), confusion (yes), convulsions (no), weakness (yes) - Psychiatric Psychiatric general PM: abnormal sleep pattern (no), anhedonia (no), anxiety (no), auditory hallucinations (no) - Endocrine Endocrine IM: change in body appearance (no) Physical Examination - Vital Signs Vital Signs: Initial Vital Signs Temp Pulse Resp BP Pulse Ox 98.9 F 72 16 156/77 99 10/23/18 16:01 10/23/18 16:01 10/23/18 16:01 10/23/18 16:01 10/23/18 16:01 - Constitutional General appearance: comfortable - Neurologic Detailed motor examination: full strength in all major muscle groups Motor examination - right side: 5/5: deltoids, biceps, triceps, wrist flexion, wrist extension, global upstream marketing manager, hip flexors, tibialis Anterior, quadriceps, toe extension (EHL), plantarflexion Motor examination - left side: 06/28: deltoids, biceps, triceps, wrist flexion, wrist extension, hip flexors, global upstream marketing manager, quadriceps, tibialis Anterior, toe extension (EHL), plantarflexion Detailed sensory examination: intact Posture: other (none) Reflex and gait examination: intact Reflexes: Biceps: 2+, Triceps: 2+, Brachioradialis: 2+, Patella: 2+, Achilles: 2+ Mental Status Examination: awake, alert, oriented to person, oriented to place, oriented to time, follows commands appropriately, answers questions ap propriately, no agnosia, no aphasia, no aproxia Cranial nerve examination: PERRL, EOMI, visual becker intact, corneal reflexes brisk symmetrically, sensory to face intact, mastication intact, no facial asymmetry is present, no dysarthria, hearing is intact symmetrically, soft palate elevates bilaterally upon phonation, gag reflex intact, flexes SCM and trapezius muscles symmetrically with full power, tongue protrudes midline, no atrophy or facial fasiculations present Cerebellar examination: no dysmetria, performs finger to nose and heel to pichardo symmetrically without ataxia, no gait ataxia, no truncal ataxia, no difficulty with rapid alternating movements Results - Laboratory Findings CBC and BMP: 10/23/18 16:17 10/23/18 16:17 Abnormal lab findings: Abnormal lab results Glucose 381 mg/dL (70-105) H 10/23/18 16:17 POC Glucose 276 mg/dL (70-99) H 10/23/18 21:59 Hemoglobin A1c 10.5 % (-5.6) H 10/24/18 00:41 Calculated Osmolality 302 (280-300) H 10/23/18 16:17 Triglycerides 179 mg/dL (< 150) H 10/24/18 00:41 LDL Cholesterol, Calc 110 mg/dL (0-99) H 10/24/18 00:41 VLDL Cholesterol, Calc 36 mg/dL (< 31) H 10/24/18 00:41 Ur Specific [place] > 1.030 (1.010-1.025) H 10/23/18 16:30 Urine Glucose (UA) >=1000 mg/dL (Normal) H 10/23/18 16:30 - Diagnostic Findings Additional findings: CT OF THE HEAD WITHOUT CONTRAST 10/23/2018 4:56 pm TECHNIQUE: CT of the head was performed without the administration of intravenous contrast. Dose modulation, iterative reconstruction, and/or weight based adjustment of the mA/kV was utilized to reduce the radiation dose to as low as reasonably achievable. 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 Mild prominence of sulci overlying convexities of cerebral hemispheres consistent with mild atrophy. Very minimal low attenuation within periventricular/subcortical white matter nonspecific however likely represent changes of minimal ischemic leukoencephalopathy. Faint basal ganglia calcification is identified. No abnormal extra-axial fluid collections are identified. Minimal atherosclerotic calcification of distal internal carotid arteries. ORBITS: The visualized portion of the orbits demonstrate no acute abnormality. SINUSES: The visualized paranasal sinuses and mastoid air cells demonstrate no acute abnormality. SOFT TISSUES/SKULL: No acute abnormality of the visualized skull or soft tissues. CT/CT head/brain wo con IMPRESSION: No evidence of acute intracranial abnormality. D/ / 10/23/2018 17:04:41 Elie Lombardi MD / marco antonio Interpreting Provider: Elie Lombardi MD MRI OF THE BRAIN WITHOUT CONTRAST AND MRA HEAD WITHOUT CONTRAST 10/23/2018 9:13 pm TECHNIQUE: Multiplanar multisequence MRI of the brain was performed without the administration of intravenous contrast. MRA of the head was performed utilizing [id number] imaging with MIP images. No intravenous contrast was administered. COMPARISON: None HISTORY: ORDERING SYSTEM PROVIDED HISTORY: TIA evaluation FINDINGS: MRI BRAIN: INTRACRANIAL STRUCTURES/VENTRICLES: Tiny area of restricted diffusion within the right periventricular white matter. No evidence of abnormal susceptibility signal to suggest intracranial hemorrhage. Mild amount of chronic small vessel ischemic white matter disease. Mild diffuse cerebral volume loss. No evidence of midline shift. The basal cisterns are patent. ORBITS: The orbits are unremarkable. SINUSES: No significant paranasal sinus disease. The mastoid air cells are clear. BONES/SOFT TISSUES: No significant abnormalities. MRA HEAD: ANTERIOR CIRCULATION: The internal carotid arteries are normal in course and caliber without focal stenosis. The anterior cerebral and middle cerebral arteries demonstrate no focal stenosis. Right A1 segment is hypoplastic. POSTERIOR CIRCULATION: Distal vertebral arteries unremarkable bilaterally. Severe stenosis at the junction of the left P1 and P2 segments. The right posterior cerebral artery appears unremarkable. There is a prominent right posterior communicating artery. The basilar artery appears unremarkable. ANEURYSM: No sizable aneurysm within limitation of motion. MR/MR head/brain wo con IMPRESSION: Small area of acute infarct within right periventricular white matter. No evidence of acute intracranial hemorrhage. Small amount of chronic small vessel ischemic white matter disease. Mild diffuse cerebral volume loss. 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 No infarct is identified in this distribution. No additional evidence of high-grade stenosis or focal occlusion involving the intracranial vasculature. The findings were sent to the Radiology Results Communication Center at 9:56 pm on 10/23/2018to be communicated to a licensed caregiver. D/ / 10/23/2018 22:01:23 Julio Horner MD / marco antonio Interpreting Provider: Julio Horner MD EV/EV echo with saline Impressions: LVEF 60-65%. Normal LV chamber size and function. Mild concentric left ventricular hypertrophy. Mild left ventricular diastolic dysfunction. Normal right ventricular structure and function. Suboptimal image quality, but no obvious evidence of PFO with agitated saline contrast. Mildly calcified aortic valve leaflets. No aortic stenosis detected by Doppler. Visually, there is mild aortic stenosis. No evidence of pulmonary hypertension. Consult Discharge Plan - Plan Referrals: Louisa Caldera, [facility] [Primary Care Provider] -
--- NOTE | 2018-10-24 15:41 | Discharge Summary ---
- NOTES TO OUTPATIENT PROVIDER Notes to Outpatient Provider: Presented with confusions speech diffiuclty and r leg weakness. MRI of brain confirmed diagnosis of lacunar infarct involving the right periventricular white matter most consistent with small vessel etiology. And by neurology recommending antiplatelet and statin therapy. MRA of the brain demonstrated severe stenosis involving the left P1 segment-though cerebral infarct noted in the area supplied by this artery no indication for any type of angioplastic procedure. Patient has returned back to baseline-continue with aspirin we will increase statin. Hemoglobin A-1 C-10.5- will need to be evaluated for insulin therapy. Advised to monitor BP cn keep a log- monitor Gl ucose and keep a log Date of Encounter: 10/24/18 Time of Encounter: 15:34 - Discharge Diagnosis (1) CVA (cerebral vascular accident) Priority: Primary Status: Acute Qualifiers: CVA mechanism: unspecified Qualified Code(s): I63.9 - Cerebral infarction, unspecified (2) HTN (hypertension) Priority: Secondary Status: Acute Qualifiers: Hypertension type: essential hypertension Qualified Code(s): I10 - Essential (primary) hypertension (3) Diabetes Priority: Secondary Status: Acute Qualifiers: Diabetes mellitus type: type 2 Diabetes mellitus half-way insulin use: without half-way use Diabetes mellitus complication status: without complication Qualified Code(s): E11.9 - Type 2 diabetes mellitus without complications Hospital course: Ms. Lorenzana is a 63 year old female past medical history of hypertension diabetes hyperlipidemia GERD who developed acute onset of confusion and difficulty speech as well as right leg weakness lasting approximately 15-20 minutes with rapid resolution. MRI of brain confirmed diagnosis of lacunar infarct involving right periventricular white matter, most consistent with small vessel etiology. Cardiac echo with EF of 6065% with no evidence of PFO. Less than 50% stenosis in the internal carotid arteries bilaterally, No hemodynamically significant stenosis or branch occlusion in the cervical arterial circulation. Patient was evaluated by neurology who recommends antiplatelet and statin therapy. Currently she is back to her neurological baseline and there are no focal deficits noted advised patient to monitor blood pressure and blood glucose and keep a log, she will follow-up with her primary care provider. She is hemodynamically stable and ready for discharge - Time Spent with Patient Total time spent providing and/or coordinating discharge services: - Discharge Medications Prescriptions: Continued Cholecalciferol (D-3) [Vitamin D] 5,000 unit PO DAILY metFORMIN [Glucophage] 500 mg PO BID Ferrous Sulfate 325 mg PO DAILY Meclizine [Antivert] 25 mg PO AD PRN PRN Reason: Dizziness Aspirin 81 mg PO DAILY Lisinopril [Zestril] 30 mg PO DAILY Glimepiride [Amaryl] 4 mg PO QAM Omeprazole [PriLOSEC] 20 mg PO DAILY BuPROPion XL (24 HR) [Wellbutrin Xl] 150 mg PO DAILY Saxagliptin HCl [Onglyza] 5 mg PO DAILY Promethazine [Phenergan] 25 mg PO Q8HR PRN PRN Reason: Nausea Ondansetron HCl 4 mg SL Q4HR PRN PRN Reason: Nausea hydroCHLOROthiazide [Hydrochlorothiazide] 12.5 mg PO DAILY Melatonin 6 mg PO HS Changed Atorvastatin Calcium [Lipitor] 40 mg PO DAILY 30 Days #60 tablet No Action hydroCHLOROthiazide [Hydrochlorothiazide] 12.5 mg PO DAILY Bupropion HCl [Wellbutrin Xl] 300 mg PO DAILY Glimepiride [Amaryl] 4 mg PO DAILY Ferrous Sulfate [Iron] 325 mg PO DAILY buPROPion HCl [Zyban] 150 mg PO BID Home Medications: Aspirin 81 mg PO DAILY 11/23/15 [History] Bupropion HCl [Wellbutrin Xl] 300 mg PO DAILY 11/23/15 [History] Cholecalciferol (D-3) [Vitamin D] 5,000 unit PO DAILY 11/23/15 [History] Ferrous Sulfate 325 mg PO DAILY 11/23/15 [History] Glimepiride [Amaryl] 4 mg PO QAM 11/23/15 [History] Lisinopril [Zestril] 30 mg PO DAILY 11/23/15 [History] Meclizine [Antivert] 25 mg PO AD PRN 11/23/15 [History] hydroCHLOROthiazide [Hydrochlorothiazide] 12.5 mg PO DAILY 11/23/15 [History] metFORMIN [Glucophage] 500 mg PO BID 11/23/15 [History] Omeprazole [PriLOSEC] 20 mg PO DAILY 01/03/17 [History] BuPROPion XL (24 HR) [Wellbutrin Xl] 150 mg PO DAILY 10/23/18 [History] Ferrous Sulfate [Iron] 325 mg PO DAILY 10/23/18 [History] Glimepiride [Amaryl] 4 mg PO DAILY 10/23/18 [History] Melatonin 6 mg PO HS 10/23/18 [History] Ondansetron HCl 4 mg SL Q4HR PRN 10/23/18 [History] Promethazine [Phenergan] 25 mg PO Q8HR PRN 10/23/18 [History] Saxagliptin HCl [Onglyza] 5 mg PO DAILY 10/23/18 [History] buPROPion HCl [Zyban] 150 mg PO BID 10/23/18 [History] hydroCHLOROthiazide [Hydrochlorothiazide] 12.5 mg PO DAILY 10/23/18 [History] Atorvastatin Calcium [Lipitor] 40 mg PO DAILY 30 Days #60 tablet 10/24/18 [Rx] Allergies/Adverse Reactions: Allergy/AdvReac Type Severity Reaction Status Date / Time No Known Allergies Allergy Verified 11/23/15 09:31 Date of admission: 10/23/18 19:04 Primary care physician: Louisa Caldera Consults: 10/23/18 22:59 Consult to Neurology [CONS] Routine Consulting Provider: Neurology [facility] Reason for Consult: New ischemic stroke diagnosis Call Completed: No Consult to Physical Therapy [CONS] Routine Comment: Evaluate, develop and implement POC Reason for Consult: New ischemic stroke Does patient have active BEDREST order?: No Is patient medically & hemodynamically stable?: Yes Patient assessed for mobility or mobilized this visit?: Yes Discharging clinician: Mali Wallace Anticipated date of discharge: 10/24/18 - Constitutional Vitals: Temp Pulse Resp BP Pulse Ox 98.0 F 80 16 197/94 95 10/24/18 11:42 10/24/18 11:42 10/24/18 11:42 10/24/18 11:42 10/24/18 11:42 Exam: Skin: Free of rash and discoloration. Eyes: Sclera is white. There is no discharge from eyes. ENMT: Oral/pharyngeal mucosa is normal in appearance. There is no discharge from nose or ears. Respiratory: Normal breath sounds with no crackles and wheezes bilaterally. CV: Heart is regular with no gallop or murmur. GI: Abdomen is flat and soft with no palpable mass or visceromegaly. : There is no tenderness in patient's flanks bilaterally. Neuro exam: He has good strength in upper and lower extremities. He has normal eye movements. Psychiatric: He has normal affect. His thought process is appropriate to the situation. - Patient Status Disposition: Home, Self-Care Condition: Fair Functional capacity at discharge: independent ambulation Overall status at discharge: patient is back to baseline - Discharge Instructions Follow Up With: Louisa Caldera CNP [Primary Care Provider] - - Diet and Activity Activity: increase activity as tolerated Diet: advance to your usual diet - VTE Documentation of Mechanical Device: Graduated compression elastic hosiery
[2018-10-24 16:49] VITALS: BP 177/97
--- NOTE | 2018-10-25 00:32 | Electrocardiograph Report ---
[facility] [employer] Test Date: 2018-10-23 Pat Name: Emily Lorenzana Department: [id number] Room: 3B13 Gender: F Eyedotter: : 1955 Requested By: Nadine Griffiths Order Number: [id number] Reading MD: Sean Echevarria Measurements Intervals [place] Rate: 76 P: 59 VT: 146 QRS: 1 QRSD: 98 T: 68 QT: 391 QTc: 440 Interpretive Statements Sinus rhythm Electronically Signed On 10-25-2018 0:30:53 EDT by Sean Echevarria
== END 2018-10-24 17:13 | disposition home or self-care (01) ==
LOC: 3BNU 15:53 → EMEROOARM 15:53 → 3BNU 20:23
PROVIDERS: ADMIT Internal Medicine; ATTEND Internal Medicine